=== PATIENT | female | born 1930 | race Caucasian/White ===

== ENCOUNTER 2016-11-18 11:59 | Emergency (ER) | payer MEDICARE ==
[2016-11-18 13:18] VITALS: BP 125/79
[2016-11-18] MEDS ORDERED: cefTRIAXone VIAL(*) 1,000 MG VIAL IM ONE (13:45)
[2016-11-18] MEDS ORDERED: Lidocaine 1% MPF* 2 ML VIAL INJ ONE (13:45)
--- NOTE | 2016-11-18 13:51 | UC ---
Lower Extremity/Ankle HPI - HPI Summary HPI Summary: Patient has hx of PVD, COPD, CHF, she normally has more edema in the left leg, the past two days increased redness and there is a scab over the left medial maleolus with a developing abcess. - History of Current Complaint Chief Complaint: TATIANAkin Stated Complaint: LEFT ANKLE SWELLING,? BED SORE Time Seen by Provider: 11/18/16 13:35 Hx Obtained From: Patient ?: No Onset/Duration: Sudden Onset, Lasting Days Severity Initially: Mild Severity Currently: Moderate Aggravating Factor(s): Standing, Ambulation Alleviating Factor(s): Rest Able to Bear Weight: Yes - Allergies/Home Medications Allergies/Adverse Reactions: Allergies Allergy/AdvReac Type Severity Reaction Status Date / Time No Known Allergies Allergy Verified 11/18/16 13:26 Home Medications: Home Medications Escitalopram (NF) [Lexapro 10 mg (NF)] 10 mg PO DAILY 11/18/16 [History Confirmed 11/18/16] Metoprolol Succinate XL TAB* [Toprol XL TAB*] 100 mg PO SEE INSTRUCTIONS [History Confirmed 11/18/16] Potassium Chloride [Micro-K] 8 meq PO BID 11/18/16 [History Confirmed 11/18/16] Sildenafil (PULMONARY)(NF) [Revatio (NF)] 20 mg PO TID 11/18/16 [History Confirmed 11/18/16] Spironolactone TAB* [Aldactone TAB*] 25 mg PO DAILY 11/18/16 [History Confirmed 11/18/16] Tiotropium [place]-Olodaterol [Stiolto Respimat 2.5-2.5 Mcg/Act] 1 dose .ROUTE BID 11/18/16 [History Confirmed 11/18/16] Torsemide TAB* [Demadex*] 20 mg PO BID 11/18/16 [History Confirmed 11/18/16] Warfarin TAB(*) [Coumadin TAB(*)] 2.5 mg PO 1700 11/18/16 [History Confirmed ] traZODone TAB* [Desyrel TAB*] 50 mg PO SEE INSTRUCTIONS 11/18/16 [History Confirmed 11/18/16] PMH/Surg Hx/FS Hx/Imm Hx Previously Healthy: Yes Endocrine History Of: Denies: Diabetes, Thyroid Disease Cardiovascular History Of: Reports: Cardiac Disorders - Afib, Hypertension Respiratory History Of: Reports: COPD Denies: Asthma GI/ History Of: Denies: Ulcer - Surgical History Surgical History: Yes Surgery Procedure, Year, and Place: Cardiac Cath. Left ankle ORIF. Hemroidectomy. Left hip ORIF - Family History Known Family History: Negative: Cardiac Disease, Hypertension - Social History Alcohol Use: Occasionally Substance Use Type: None Smoking Status (MU): Former Smoker Review of Systems Skin: Other - redness, swelling Eyes: Negative ENT: Negative Respiratory: Negative Cardiovascular: Negative Gastrointestinal: Negative Genitourinary: Negative Motor: Negative Musculoskeletal: Arthralgia, Edema, Myalgia Neurological: Negative Psychological: Negative All Other Systems Reviewed And Are Negative: Yes Physical Exam Triage Information Reviewed: Yes Appearance: Ill-Appearing, Pain Distress, Thin Vital Signs: Initial Vital Signs Temp 99.1 F 11/18/16 13:10 Pulse 85 11/18/16 13:10 Resp 24 11/18/16 13:10 BP 125/79 11/18/16 13:10 Pulse Ox 87 11/18/16 13:10 Vital Signs Reviewed: Yes Eye Exam: Normal Eyes: Positive: Conjunctiva Clear ENT: Positive: Hearing grossly normal, Pharynx normal, TMs normal Dental Exam: Normal Neck exam: Normal Neck: Positive: Supple, Nontender, No Lymphadenopathy Respiratory Exam: Normal Respiratory: Positive: Chest non-tender, Lungs clear, Normal breath sounds Cardiovascular Exam: Normal Cardiovascular: Positive: RRR, No Murmur, Pulses Normal Abdominal Exam: Normal Abdomen Description: Positive: Nontender, No Organomegaly, Soft Bowel Sounds: Positive: Present Musculoskeletal Exam: Normal Musculoskeletal: Positive: Strength Intact, ROM Intact, Edema @ - left ankle Neurological Exam: Normal Neurological: Positive: Alert, Muscle Tone Normal Psychological Exam: Normal Skin Exam: Normal Lower Extremity Course/Dx - Course Course Of Treatment: hx obtained, exam performed, meds reviewed, cellulitis treated with rocephin and keflex. recommend follow up in two days. - Differential Dx/Diagnosis Differential Diagnosis/HQI/PQRI: Cellulitis, Septic Arthritis Provider Diagnoses: cellulitis of left foot and ankle. abscess Discharge - Discharge Plan Condition: Stable Disposition: HOME Patient Education Materials: Cellulitis (ED), Warm Compress or Soak (ED) Additional Instructions: 1. Start the antibiotic one dose tonight and then as directed. 2. Multiple warm soaks daily. 3. Elevated foot for majority of the next few days. 4. Highly recommend follow up in the next 48-[address] Hazel.
== END 2016-11-18 14:20 | disposition home or self-care (01) ==
LOC: UCCORT 11:59
DX: L03.116 Cellulitis of left lower limb (principal); B96.89 Other specified bacterial agents as the cause of diseases classified elsewhere
CPT/HCPCS: 96372; 99202; G0463; J0696